=== PATIENT | male | born 1945 | race Hispanic/Latino ===

== ENCOUNTER → 2019-03-20 | Outpatient (CLI) | payer OTHER | END | disposition home or self-care (01) | LOC: RAH 12:06 | PROVIDERS: ATTEND Internal Medicine | DX: I70.208 Unspecified atherosclerosis of native arteries of extremities, other extremity (principal); I77.1 Stricture of artery | CPT/HCPCS: 93925 ==

== ENCOUNTER → 2019-05-12 | Outpatient (CLI) | payer OTHER ==
[~2019-05-12] MED LIST: GADODIAMIDE 10 MMOL/20 ML VIAL IV ONE
== END | disposition home or self-care (01) ==
LOC: RAH 12:59
PROVIDERS: ATTEND Internal Medicine
DX: M47.816 Spondylosis without myelopathy or radiculopathy, lumbar region (principal); M48.02 Spinal stenosis, cervical region; M48.061 Spinal stenosis, lumbar region without neurogenic claudication; M48.07 Spinal stenosis, lumbosacral region
CPT/HCPCS: 72158; A9579

== ENCOUNTER → 2019-10-17 | Outpatient (CLI) | payer OTHER | END | disposition home or self-care (01) | LOC: SHCH 09:02 | PROVIDERS: ATTEND Internal Medicine Cardiovascular Disease | DX: I71.4 Abdominal aortic aneurysm, without rupture (principal) | CPT/HCPCS: 93978 ==

== ENCOUNTER 2021-01-17 09:51 | Inpatient (IN) | payer OTHER ==
[~2021-01-17] VITALS: Ht 167.6 cm; Wt 76.5 kg
[2021-01-17] VITALS (8 sets, daily range): BP systolic 117–156; BP diastolic 68–83
[2021-01-17] MEDS ORDERED: ASPIRIN 325 MG TABLET ONE (10:02)
[2021-01-17 10:05] LABS: BASOPHILS % (AUTO) 0.5 % (0.0-5.0); EOSINOPHILS % (AUTO) 0.2 % (0.0-8.0); LYMPHOCYTES % (AUTO) 18.2 % (21.0-51.0); MEAN CORPUSCULAR HEMOGLOBIN 25.3 pg (27.0-33.0); MEAN CORPUSCULAR HGB CONC 31.3 g/dL (32.0-36.0); MEAN CORPUSCULAR VOLUME 80.7 fL (79-99); MONOCYTES % (AUTO) 5.8 % (3.0-13.0); PLATELET COUNT (AUTO) 296 K/uL (130-400); RED BLOOD CELL COUNT(AUTO) 4.83 MIL/uL (4.50-6.20); RED CELL DISTRIBUTION WIDTH 15.6 % (11.0-15.5); WHITE BLOOD COUNT (AUTO) 6.5 K/uL (4.8-10.8)
[2021-01-17] MEDS ORDERED: NITROGLYCERIN 0.4 MG SL TAB SL ONE (10:09)
[2021-01-17 10:14] LABS: CREATININE 0.9 mg/dL (0.5-1.5); POTASSIUM 3.5 mmol/L (3.5-5.1)
[2021-01-17 10:16] LABS: INR 0.98 (0.85-1.15); PROTHROMBIN TIME 10.7 SEC (9.6-11.6)
[2021-01-17 10:17] LABS: PARTIAL THROMBOPLASTIN TIME 25.2 SEC (26.3-35.5)
[2021-01-17] MEDS ORDERED: NITROGLYCERIN 1GM OINT 1 INCH/1GM TD ONE (10:25)
[2021-01-17] MEDS ORDERED: CLOPIDOGREL 300MG TAB ONE ×2 (10:31→10:53)
[2021-01-17 10:32] LABS: BILIRUBIN,TOTAL 0.5 mg/dL (0.2-1.0)
[2021-01-17 10:33] LABS: ALBUMIN 3.8 g/dL (3.5-5.0); TOTAL PROTEIN, SERUM 7.9 g/dL (6.0-8.3)
[2021-01-17] MEDS ORDERED: IOHEXOL-350 50ML VIAL IV ONE (10:35)
[2021-01-17] MEDS ORDERED: LIDOCAINE HCL 400MG/20ML VIAL ONE (10:35)
[2021-01-17] MEDS ORDERED: IOHEXOL 350 MG/ML 100ML INFUS..BTL IV ONE (10:35)
[2021-01-17] MEDS ORDERED: BIVALIRUDIN 250 MG/VIAL IV ONE (10:35)
[2021-01-17] MEDS ORDERED: HEPARIN 10,000 UNIT/10ML (1,000 UNIT/ML) VIAL ONE (10:35)
[2021-01-17] MEDS ORDERED: NITROGLYCERIN 2 MG VIAL IV ONE (10:35)
[2021-01-17] MEDS ORDERED: ATROPINE 1MG SYG IVP ONE (10:41)
[2021-01-17] MEDS ORDERED: DOPAMINE HCL 400 MG/D5%-WATER 0 ML IV ONE (10:41)
[2021-01-17] MEDS ORDERED: FENTANYL CITRATE PF 50 MCG/1 ML 2ML VIAL ONE (10:48)
[2021-01-17] MEDS ORDERED: MIDAZOLAM HCL 1 MG/ML 2ML VIAL ONE (10:48)
[2021-01-17] MEDS ORDERED: METOPROLOL TARTRATE 1 MG/ML 5ML VIAL IV ONE ×2 (11:13→11:20)
[2021-01-17] MEDS ORDERED: IOHEXOL-350 75 ML VIAL IV ONE (11:21)
[2021-01-17] MEDS ORDERED: LABETALOL 20MG SYG IV ONE ×2 (11:38→11:53)
[2021-01-17] MEDS ORDERED: PRASUGREL HCL 10 MG TABLET ONE (11:53)
[2021-01-17] MEDS ORDERED: ONDANSETRON 4MG INJ IVP PRN (12:30)
[2021-01-17] MEDS ORDERED: LABETALOL 20MG VIAL IV PRN (12:30)
[2021-01-17] MEDS ORDERED: ACETAMINOPHEN 325 MG TAB PO PRN (12:30)
[2021-01-17] MEDS ORDERED: [UNRECOGNIZED DRUG - OTHER] PO (12:54)
[2021-01-17] MEDS ORDERED: LOSA100T58 PO (12:54)
[2021-01-17] MEDS ORDERED: NAPR-1023 PO (12:54)
[2021-01-17] MEDS ORDERED: METO-409 PO (12:54)
[2021-01-17] MEDS ORDERED: GLIP-162 PO (12:54)
[2021-01-17] MEDS ORDERED: ATOR40TA69 PO (12:54)
[2021-01-17] MEDS ORDERED: AMLO-258 PO (12:54)
[2021-01-17] MEDS ORDERED: METF-444 PO (12:54)
[2021-01-17] MEDS: FERROUS SULFATE 325 MG TABLET.DR PO SCH ×2 (13:45→22:22)
[2021-01-17] MEDS ORDERED: DEXTROSE 50%-WATER 50 ML DISP.SYRIN IV PRN (14:00)
[2021-01-17] MEDS ORDERED: POTASSIUM CHLORIDE 10% ELIXIR 20 MEQ/15 ML UDCUP PO PRN (14:00)
[2021-01-17] MEDS ORDERED: MAGNESIUM 2GM PREMIX 50ML 50 ML IV PRN (14:00)
[2021-01-17] MEDS ORDERED: METOPROLOL SUCCINATE 50 MG TAB.SR.24H PO SCH (14:00)
[2021-01-17] MEDS ORDERED: GLUCAGON 1MG KIT 1 MG ML IM PRN (14:00)
[2021-01-17] MEDS ORDERED: LIDOCAINE HCL-MPF 1% 2ML VIAL IV PRN ×2 (14:00)
[2021-01-17] MEDS ORDERED: LOSARTAN 100 MG TABLET PO SCH (14:00)
[2021-01-17] MEDS ORDERED: POTASSIUM CHLORIDE 20MEQ/100ML 100 ML IV PRN ×2 (14:00)
[2021-01-17] MEDS: PANTOPRAZOLE 40 MG TAB DR PO SCH (15:03)
[2021-01-17] MEDS: ATORVASTATIN 40 MG TABLET PO SCH (22:22)
[2021-01-17] MEDS: KCL 20 MEQ ERTAB PO PRN (22:22)
[2021-01-18 00:02] VITALS: BP 141/66
[2021-01-18 03:40] VITALS: BP 147/68
[2021-01-18 05:41] LABS: HEMATOCRIT 33.2 % (42-54); MEAN CORPUSCULAR HEMOGLOBIN 26.3 pg (27.0-33.0); MEAN CORPUSCULAR HGB CONC 33.1 g/dL (32.0-36.0); MEAN CORPUSCULAR VOLUME 79.2 fL (79-99); RED BLOOD CELL COUNT(AUTO) 4.19 MIL/uL (4.50-6.20); RED CELL DISTRIBUTION WIDTH 15.9 % (11.0-15.5); WHITE BLOOD COUNT (AUTO) 5.6 K/uL (4.8-10.8)
[2021-01-18 06:05] LABS: ALBUMIN 3.1 g/dL (3.5-5.0); BILIRUBIN,TOTAL 0.7 mg/dL (0.2-1.0); CREATININE 1.2 mg/dL (0.5-1.5); MAGNESIUM 1.8 mg/dL (1.80-2.40); POTASSIUM 3.6 mmol/L (3.5-5.1); TOTAL PROTEIN, SERUM 6.7 g/dL (6.0-8.3)
[2021-01-18] MEDS: KCL 20 MEQ ERTAB PO PRN ×2 (06:22→09:57)
[2021-01-18 06:59] LABS: APPEARANCE,URINE Clear (CLEAR); BILIRUBIN,URINE Negative (NEGATIVE); COLOR,URINE Yellow (YELLOW); GLUCOSE, URINE (UA) 250 mg/dL (NEGATIVE); KETONES,URINE Negative (NEGATIVE); LEUKOCYTE ESTERASE ,URINE Negative (NEGATIVE); NITRATE,URINE Negative (NEGATIVE); OCCULT BLOOD,URINE Negative (NEGATIVE); PROTEIN,URINE POS 1+ mg/dL (NEGATIVE); UROBILINOGEN,URINE 0.2 mg/dL (0.2-1.0)
[2021-01-18 07:40] LABS: BACTERIA,URINE Few /HPF (None Seen); RBC,URINE 0-1 /HPF (0-1)
[2021-01-18 07:41] LABS: WBC,URINE 0-1 /HPF (0-1)
[2021-01-18 07:51] LABS: SQUAMOUS EPITHELIAL CELL,UR None Seen /HPF (0-2)
[2021-01-18 07:53] LABS: URIC ACID CRYSTALS,URINE Rare /LPF (None Seen)
[2021-01-18 08:00] VITALS: BP 136/67
[2021-01-18] MEDS: ASPIRIN 81MG CHEW TAB PO SCH (09:54)
[2021-01-18] MEDS: PRASUGREL HCL 10 MG TABLET PO SCH (09:55)
[2021-01-18] MEDS: METOPROLOL SUCCINATE 50 MG TAB.SR.24H PO SCH (09:55)
[2021-01-18] MEDS: LOSARTAN 100 MG TABLET PO SCH (09:55)
[2021-01-18] MEDS: PANTOPRAZOLE 40 MG TAB DR PO SCH (09:55)
[2021-01-18] MEDS: FERROUS SULFATE 325 MG TABLET.DR PO SCH ×3 (09:55→21:07)
[2021-01-18 11:50] VITALS: BP 132/64
[2021-01-18 16:00] VITALS: BP 136/64
[2021-01-18] MEDS: ATORVASTATIN 40 MG TABLET PO SCH (21:07)
[2021-01-18 21:37] VITALS: BP 155/70
[2021-01-19 00:54] VITALS: BP 156/73
[2021-01-19 04:10] VITALS: BP 159/68
[2021-01-19 04:26] LABS: HEMATOCRIT 32.5 % (42-54); MEAN CORPUSCULAR HEMOGLOBIN 25.3 pg (27.0-33.0); MEAN CORPUSCULAR HGB CONC 31.4 g/dL (32.0-36.0); MEAN CORPUSCULAR VOLUME 80.6 fL (79-99); RED BLOOD CELL COUNT(AUTO) 4.03 MIL/uL (4.50-6.20); RED CELL DISTRIBUTION WIDTH 16.1 % (11.0-15.5); WHITE BLOOD COUNT (AUTO) 5.9 K/uL (4.8-10.8)
[2021-01-19 04:42] LABS: POTASSIUM 3.8 mmol/L (3.5-5.1)
[2021-01-19 08:00] VITALS: BP 156/79
[2021-01-19] MEDS: ASPIRIN 81MG CHEW TAB PO SCH (09:12)
[2021-01-19] MEDS: PANTOPRAZOLE 40 MG TAB DR PO SCH (09:12)
[2021-01-19] MEDS: PRASUGREL HCL 10 MG TABLET PO SCH (09:12)
[2021-01-19] MEDS: METOPROLOL SUCCINATE 50 MG TAB.SR.24H PO SCH (09:12)
[2021-01-19] MEDS: FERROUS SULFATE 325 MG TABLET.DR PO SCH ×2 (09:12→13:21)
[2021-01-19] MEDS: LOSARTAN 100 MG TABLET PO SCH (09:12)
[2021-01-19 12:00] VITALS: BP 158/65
[2021-01-19 16:00] VITALS: BP 156/70
[2021-01-19] MEDS ORDERED: PRAS10TA9 PO (17:35)
[2021-01-19] MEDS ORDERED: EZET10TA48 PO (17:35)
[2021-01-19] MEDS ORDERED: ASPI-1197 PO (17:36)
[2021-02-18] MEDS ORDERED: ISOS30TA92 PO (14:03)
[2021-02-18] MEDS ORDERED: GLIP10TA9 PO (14:03)
== END 2021-01-19 18:53 | disposition home or self-care (01) | DRG 246 ==
LOC: EDH 09:51 → EDHIP 10:30 → OBSVTOIN 10:30 → 4DH 13:00
PROVIDERS: ADMIT Internal Medicine Pulmonary Disease; ATTEND Internal Medicine Pulmonary Disease
PROC: 027034Z Dilation of Coronary Artery, One Artery with Drug-eluting Intraluminal Device, Percutaneous Approach (ICD-10-PCS; principal; 2021-01-17)
PROC: 4A023N7 Measurement of Cardiac Sampling and Pressure, Left Heart, Percutaneous Approach (ICD-10-PCS; 2021-01-17)
PROC: B2111ZZ Fluoroscopy of Multiple Coronary Arteries using Low Osmolar Contrast (ICD-10-PCS; 2021-01-17)
PROC: B2151ZZ Fluoroscopy of Left Heart using Low Osmolar Contrast (ICD-10-PCS; 2021-01-17)
PROC: B41F1ZZ Fluoroscopy of Right Lower Extremity Arteries using Low Osmolar Contrast (ICD-10-PCS; 2021-01-17)
DX: I21.09 ST elevation (STEMI) myocardial infarction involving other coronary artery of anterior wall (principal); I50.43 Acute on chronic combined systolic (congestive) and diastolic (congestive) heart failure; I25.110 Atherosclerotic heart disease of native coronary artery with unstable angina pectoris; Z68.28 Body mass index [BMI] 28.0-28.9, adult; D64.9 Anemia, unspecified; E11.9 Type 2 diabetes mellitus without complications; E78.5 Hyperlipidemia, unspecified; I25.5 Ischemic cardiomyopathy; I45.10 Unspecified right bundle-branch block; Z96.651 Presence of right artificial knee joint; Z95.5 Presence of coronary angioplasty implant and graft; Z79.84 Long term (current) use of oral hypoglycemic drugs; Z79.899 Other long term (current) drug therapy; I11.0 Hypertensive heart disease with heart failure
CPT/HCPCS: 36415; 71045; 80048; 80053; 80061; 81001; 82550; 82948; 83735; 84484; 85025; 85027; 85347; 85610; 85730; 93005; 93306; 93356; 93458; 97039; C1725; C1760; C1769; C1887; C1894; C9606; G0378; J0461; J0583; J1265; J1644; J2250; J3010; J3490; Q9967

== ENCOUNTER 2021-02-21 07:30 | Day surgery (SDC) | payer OTHER ==
[2021-02-17 12:24] LABS: BASOPHILS % (AUTO) 0.5 % (0.0-5.0); EOSINOPHILS % (AUTO) 1.3 % (0.0-8.0); HEMATOCRIT 34.3 % (42-54); LYMPHOCYTES % (AUTO) 23.9 % (21.0-51.0); MEAN CORPUSCULAR HEMOGLOBIN 26.6 pg (27.0-33.0); MEAN CORPUSCULAR HGB CONC 32.4 g/dL (32.0-36.0); MEAN CORPUSCULAR VOLUME 82.3 fL (79-99); MONOCYTES % (AUTO) 8.7 % (3.0-13.0); NEUTROPHILS % (AUTO) 65.4 % (40.0-77.0); PLATELET COUNT (AUTO) 255 K/uL (130-400); RED BLOOD CELL COUNT(AUTO) 4.17 MIL/uL (4.50-6.20); RED CELL DISTRIBUTION WIDTH 15.9 % (11.0-15.5); WHITE BLOOD COUNT (AUTO) 5.5 K/uL (4.8-10.8)
[2021-02-17 12:25] LABS: APPEARANCE,URINE Cloudy (CLEAR); BILIRUBIN,URINE Negative (NEGATIVE); COLOR,URINE Yellow (YELLOW); GLUCOSE, URINE (UA) Negative (NEGATIVE); KETONES,URINE Negative (NEGATIVE); LEUKOCYTE ESTERASE ,URINE Negative (NEGATIVE); NITRATE,URINE Negative (NEGATIVE); OCCULT BLOOD,URINE Negative (NEGATIVE); PROTEIN,URINE Trace mg/dL (NEGATIVE)
[2021-02-17 12:29] LABS: BACTERIA,URINE Rare /HPF (None Seen); RBC,URINE 0-1 /HPF (0-1); SQUAMOUS EPITHELIAL CELL,UR Rare /HPF (0-2); URIC ACID CRYSTALS,URINE Few /LPF (None Seen); WBC,URINE 0-1 /HPF (0-1)
[2021-02-17 12:32] LABS: POTASSIUM 3.9 mmol/L (3.5-5.1)
[2021-02-17 12:35] LABS: INR 1.02 (0.85-1.15); PROTHROMBIN TIME 11.1 SEC (9.6-11.6)
[2021-02-17 12:37] LABS: PARTIAL THROMBOPLASTIN TIME 24.9 SEC (26.3-35.5)
[2021-02-18 12:33] VITALS: BP 148/66
[~2021-02-21] VITALS: Ht 167.6 cm; Wt 78.0 kg
[2021-02-21] VITALS (23 sets, daily range): BP systolic 119–155; BP diastolic 62–91
[~2021-02-21 07:30] MED LIST changes: +0.9% NACL 500ML IV.SOLN 500 ML IV SCH; +AMLO-258 PO; +ATOR40TA69 PO; +EZET10TA48 PO; -GADODIAMIDE 10 MMOL/20 ML VIAL IV ONE; +GLIP10TA9 PO; +ISOS30TA92 PO; +LOSA100T58 PO; +METF-444 PO; +METO-409 PO; +PRAS10TA9 PO; +[UNRECOGNIZED DRUG - OTHER] PO
[2021-02-21] MEDS ORDERED: 0.9%NACL 1000ML 1,000 ML IV ONE (08:13)
[2021-02-21] MEDS ORDERED: IOHEXOL 350 MG/ML 100ML INFUS..BTL IV ONE (08:59)
[2021-02-21] MEDS ORDERED: IOHEXOL-350 50ML VIAL IV ONE (08:59)
[2021-02-21] MEDS ORDERED: BIVALIRUDIN 250 MG/VIAL IV ONE (08:59)
[2021-02-21] MEDS ORDERED: NITROGLYCERIN 2 MG VIAL IV ONE (08:59)
[2021-02-21] MEDS ORDERED: FENTANYL CITRATE PF 50 MCG/1 ML 2ML VIAL ONE (09:00)
[2021-02-21] MEDS ORDERED: MIDAZOLAM HCL 1 MG/ML 2ML VIAL ONE (09:00)
[2021-02-21] MEDS ORDERED: LIDOCAINE HCL 400MG/20ML VIAL ONE (09:00)
[2021-02-21] MEDS ORDERED: 0.9%NACL 1000ML 1,000 ML IV SCH (10:45)
[2021-02-21] MEDS ORDERED: GLUCAGON 1MG KIT 1 MG ML IM PRN (10:45)
[2021-02-21] MEDS ORDERED: DEXTROSE 50%-WATER 50 ML DISP.SYRIN IV PRN (10:45)
[2021-02-21] MEDS ORDERED: NITROGLYCERIN 0.4 MG SL TAB SL PRN (10:45)
[2021-02-21] MEDS ORDERED: METOPROLOL TARTRATE 1 MG/ML 5ML VIAL IV PRN (10:45)
[2021-02-21] MEDS ORDERED: INSULIN HUMULIN R 100 UNIT/ML 3ML SQ SCH (11:30)
[2021-02-21] MEDS ORDERED: ATROPINE 1MG SYG IVP ONE (11:52)
== END 2021-02-21 17:05 | disposition home or self-care (01) ==
LOC: DAH 07:30
PROVIDERS: ATTEND Internal Medicine Cardiovascular Disease
DX: I25.118 Atherosclerotic heart disease of native coronary artery with other forms of angina pectoris (principal); I10 Essential (primary) hypertension; E11.59 Type 2 diabetes mellitus with other circulatory complications; I25.2 Old myocardial infarction; E78.5 Hyperlipidemia, unspecified; I45.10 Unspecified right bundle-branch block; Z79.84 Long term (current) use of oral hypoglycemic drugs; Z79.82 Long term (current) use of aspirin; Z79.01 Long term (current) use of anticoagulants; Z79.899 Other long term (current) drug therapy; Z95.5 Presence of coronary angioplasty implant and graft; Z83.3 Family history of diabetes mellitus; Z82.49 Family history of ischemic heart disease and other diseases of the circulatory system
CPT/HCPCS: 36415; 80048; 81001; 82948 ×2; 85025; 85610; 85730; 93005; A4215; A4216; A4221; A4222; A4223 ×3; A4606; A4615; A4657; A4663; A6260; A6402; C1769; C1874; C1887; C1894 ×2; C9600; J0583; J1644; J2250; J3010; J3490 ×2; J7030; Q9965; Q9967; 96360; 96361; 99152; 99153; 99156; 99157; J0461

== ENCOUNTER → 2023-03-28 | Outpatient (CLI) | payer OTHER ==
[~2023-03-28] MED LIST changes: -0.9% NACL 500ML IV.SOLN 500 ML IV SCH; -LOSA100T58 PO; +LOSA100T59 PO
== END | disposition home or self-care (01) ==
LOC: RAH 12:59
PROVIDERS: ATTEND Internal Medicine Gastroenterology
DX: R13.12 Dysphagia, oropharyngeal phase (principal); R63.30 Feeding difficulties, unspecified
CPT/HCPCS: 74230; 92611

== ENCOUNTER → 2023-04-17 | Outpatient (CLI) | payer OTHER ==
[~2023-04-17] MED LIST changes: +REGADENOSON 0.4 MG/5 ML PF SYG IVP ONE
== END | disposition home or self-care (01) ==
LOC: SHCH 08:03
PROVIDERS: ATTEND Internal Medicine Cardiovascular Disease
DX: I20.9 Angina pectoris, unspecified (principal); R94.39 Abnormal result of other cardiovascular function study; I45.10 Unspecified right bundle-branch block; R06.09 Other forms of dyspnea
CPT/HCPCS: 78452; 96374; 93017; J2785; A9500 ×2